=== PATIENT | female | born 1960 | race Caucasian/White ===

== ENCOUNTER 2019-06-21 18:04 | Emergency (ER) | payer OTHER ==
[~2019-06-21] VITALS: Ht 142.2 cm; Wt 44.5 kg
[2019-06-21 18:05] VITALS: Ht 142.2 cm; Wt 44.5 kg
[2019-06-21 19:05] VITALS: BP 137/69
== END 2019-06-21 19:05 | disposition home or self-care (01) ==
LOC: ED 18:04
DX: S20.212A Contusion of left front wall of thorax, initial encounter (principal); R03.0 Elevated blood-pressure reading, without diagnosis of hypertension; V49.49XA Driver injured in collision with other motor vehicles in traffic accident, initial encounter; Y93.I9 Activity, other involving external motion; Y92.413 State road as the place of occurrence of the external cause; Y99.8 Other external cause status
CPT/HCPCS: Q0092